=== PATIENT | female | born 1985 | race Caucasian/White ===

== ENCOUNTER 2019-04-25 10:15 | Emergency (ER) | payer OTHER ==
[2019-04-25] MEDS ORDERED: IV NORMAL SALINE 1,000ML 1,000 ML IV SCH (10:32)
--- NOTE | 2019-04-25 10:38 | PHYS DOC ---
Past History Past Medical History: No Pertinent History Past Surgical History: Tonsillectomy Smoking: Non-smoker Alcohol Use: Occasionally Drug Use: None Adult General Chief Complaint Chief Complaint: BACK PAIN OR INJURY HPI HPI Patient is a 34-year-old female presents with right flank pain and fever for the past day or 2. Some nausea, no vomiting. Some lower abdominal pain as well. No vaginal bleeding or discharge. Nothing makes the symptoms worse. She had subjective fever and sweats in bed this morning. Pain and fever are improved with ibuprofen. No sick family members or contacts. No recent travel outside of the [place]. Pain is moderate in intensity. Dull in nature.[] Review of Systems Review of Systems Constitutional: See history of present illness[] Eyes: Denies change in visual acuity, redness, or eye pain [] HENT: Denies nasal congestion or sore throat [] Respiratory: Denies cough or shortness of breath [] Cardiovascular: No chest pain or palpitations[] GI: Denies abdominal pain, nausea, vomiting, bloody stools or diarrhea [] : Some dysuria, no hematuria[] Musculoskeletal: Denies back pain or joint pain [] Integument: Denies rash or skin lesions [] Neurologic: Denies headache, focal weakness or sensory changes [] Endocrine: Denies polyuria or polydipsia [] All other systems were reviewed and found to be within normal limits, except as documented in this note. Allergies Allergies Allergies Coded Allergies Type Severity Reaction Last Updated Verified Sulfa (Sulfonamide Antibiotics) Allergy Unknown 04/25/19 Yes Physical Exam Physical Exam Constitutional: Well developed, well nourished, no acute distress, non-toxic appearance. [] HENT: Normocephalic, atraumatic, bilateral external ears normal, oropharynx moist, no oral exudates, nose normal. [] Eyes: PERRLA, EOMI, conjunctiva normal, no discharge. [] Neck: Normal range of motion, no tenderness, supple, no stridor. [] Cardiovascular:Heart rate regular rhythm, no murmur [] Lungs & Thorax: Bilateral breath sounds clear to auscultation [] Abdomen: Bowel sounds normal, soft, no tenderness, no masses, no pulsatile masses. [] Skin: Warm, dry, no erythema, no rash. [] Back: No tenderness, no CVA tenderness. [] Extremities: No tenderness, no cyanosis, no clubbing, ROM intact, no edema. [] Neurologic: Alert and oriented X 3, normal motor function, normal sensory function, no focal deficits noted. [] Psychologic: Affect normal, judgement normal, mood normal. [] EKG EKG [] Radiology/Procedures Radiology/Procedures PROCEDURE: CT ABDOMEN PELVIS WO CONTRAST CT ABDOMEN PELVIS WO CONTRAST History: Right flank pain. Technique: Noncontrast examination of the abdomen and pelvis. Coronal and sagittal reconstructions were performed. Exposure: One or more of the following individualized dose reduction techniques were utilized for this examination: 1. Automated exposure control 2. Adjustment of the mA and/or kV according to patient size 3. Use of iterative reconstruction technique. Comparison: None Findings: Lower chest: No consolidation or pleural effusion. Abdomen and pelvis: Right perinephric and periureteral fat stranding. Right urothelial thickening. No hydronephrosis. No renal, ureteral or urinary bladder stone. Decompressed urinary bladder. The liver, spleen, adrenal glands, pancreas and gallbladder are unremarkable. No biliary ductal dilatation. Small mildly prominent retroperitoneal lymph nodes largest right para-aortic lymph node measures 1.2 x 0.8 cm. No ascites. Pelvic contents are unremarkable. No evidence of bowel obstruction. Normal appendix. Bones: No pathologic osseous lesions. Impression: 1. Right urothelial thickening with perinephric and periureteral fat stranding, concerning for infection. Alternatively may represent recently passed stone. 2. No evidence of obstructing urolithiasis. 3. Mildly prominent retroperitoneal lymph nodes, likely reactive.[] Course & Med Decision Making Course & Med Decision Making Pertinent Labs and Imaging studies reviewed. (See chart for details) [place]: Patient arrived, was placed in bed, and tolerated exam well. She was transported to and from radiology with any complications. She was given IV fluids and pain medicine. Her heart rate improved from the 1 teens to the 80s after approximately 500 mL of fluid. This was continued as IV antibiotics were started. She had good pain relief with the IV ketorolac. Discussed findings and plan with patient who voiced understanding. All questions were answered. She was discharged in improved condition. Medical decision making: Patient appears to have pyelonephritis. Given that she is afebrile, has good pain management, is receiving first dose of antibiotics in the emergency department via the IV, and is oral intake tolerant, we will attempt outpatient treatment. There is no evidence of a kidney stone or infected stone. No evidence of appendicitis. No evidence of intractable pain.[] Dragon Disclaimer Dragon Disclaimer This electronic medical record was generated, in whole or in part, using a voice recognition dictation system. Departure Departure: Impression: Primary Impression: Pyelonephritis Disposition: HOME, SELF-CARE Condition: IMPROVED Referrals: STANLEY LOGAN PA-C (PCP) Follow-up in 2 days Patient Instructions: Pyelonephritis, Adult Additional Instructions: Drink plenty of fluids. Take the antibiotics as prescribed. Follow-up with your regular doctor in 2 days for a recheck. Return to the ER if worsening pain, fever not controlled with medicine, or any other concerns. Scripts Hydrocodone Bit/Acetaminophen (NORCO 5-325 TABLET) 1 Each Tablet 1 TAB PO Q4-6HRS for severe pain, #20 TAB Prov: JUSTIN MAHER DO 04/25/19 Meloxicam (MELOXICAM) 7.5 Mg Tablet 7.5 MG PO DAILY for PAIN, #20 TAB Prov: JUSTIN MAHER DO 04/25/19 Cephalexin (KEFLEX) 500 Mg Capsule 500 MG PO QID for kidney infection for 10 Days, #40 CAP Prov: JUSTIN MAHER DO 04/25/19 JUSTIN MAHER DO Apr 25, 2019 10:38
[2019-04-25] MEDS ORDERED: KETOROLAC 30 MG/ML VIAL. IV ONE (10:45)
[2019-04-25 10:55] LABS: BASO % 0 % (0-3); EOS % 0 % (0-3); HEMATOCRIT 38.7 % (36.0-47.0); HEMOGLOBIN 13.2 g/dL (12.0-15.5); LYMPH # 1.3 x10^3/uL (1.0-4.8); LYMPH % 8 % (24-48); MEAN CORPUSCULAR HEMOGLOBIN 30 pg (25-35); MEAN CORPUSCULAR HGB CONC 34 g/dL (31-37); MEAN CORPUSCULAR VOLUME 89 fL (79-100); MONO # 1.2 x10^3/uL (0.0-1.1); MONO % 7 % (0-9); NEUT # 14.2 x10^3uL (1.8-7.7); NEUT % 85 % (31-73); PLATELET COUNT 242 x10^3/uL (140-400); RED BLOOD COUNT 4.37 x10^6/uL (3.50-5.40); RED CELL DISTRIBUTION WIDTH 13.4 % (11.5-14.5); WHITE BLOOD COUNT 16.8 x10^3/uL (4.0-11.0)
[2019-04-25 11:06] LABS: ALBUMIN 3.4 g/dL (3.4-5.0); ALBUMIN/GLOBULIN RATIO 0.7 (1.0-1.7); GFR 63.9; POTASSIUM 3.3 mmol/L (3.5-5.1); TOTAL BILIRUBIN 0.9 mg/dL (0.2-1.0); TOTAL PROTEIN 8.3 g/dL (6.4-8.2)
--- NOTE | 2019-04-25 11:07 | RAD ---
CT ABDOMEN PELVIS WO CONTRAST History: Right flank pain. Technique: Noncontrast examination of the abdomen and pelvis. Coronal and sagittal reconstructions were performed. Exposure: One or more of the following individualized dose reduction techniques were utilized for this examination: 1. Automated exposure control 2. Adjustment of the mA and/or kV according to patient size 3. Use of iterative reconstruction technique. Comparison: None Findings: Lower chest: No consolidation or pleural effusion. Abdomen and pelvis: Right perinephric and periureteral fat stranding. Right urothelial thickening. No hydronephrosis. No renal, ureteral or urinary bladder stone. Decompressed urinary bladder. The liver, spleen, adrenal glands, pancreas and gallbladder are unremarkable. No biliary ductal dilatation. Small mildly prominent retroperitoneal lymph nodes largest right para-aortic lymph node measures 1.2 x 0.8 cm. No ascites. Pelvic contents are unremarkable. No evidence of bowel obstruction. Normal appendix. Bones: No pathologic osseous lesions. Impression: 1. Right urothelial thickening with perinephric and periureteral fat stranding, concerning for infection. Alternatively may represent recently passed stone. 2. No evidence of obstructing urolithiasis. 3. Mildly prominent retroperitoneal lymph nodes, likely reactive. Electronically signed by: Rocky Tirado DO (04/25/2019 11:04 AM) [facility]
[2019-04-25 11:09] LABS: BACTERIA,URINE MANY /HPF (0-FEW); BILIRUBIN,URINE MOD (NEG); CLARITY,URINE HAZY; COLOR,URINE AMBER; GLUCOSE,URINE NEG (NEG); NITRITE,URINE POS (NEG); RBC,URINE 20-40 /HPF (0-2); UROBILINOGEN,URINE 4 mg/dL (0.2 mg/dL); WBC,URINE >40 /HPF (0-4)
[2019-04-25 11:10] LABS: GRANULAR CASTS,URINE MOD /HPF; HYALINE CASTS, URINE MOD /HPF; SQUAMOUS EPITHELIAL CELL,UR MOD /LPF
[2019-04-25] MEDS ORDERED: cefTRIAXone SODIUM 1 GM VIAL ONE ×2 (11:24→11:40)
[2019-04-25] MEDS ORDERED: IV NORMAL SALINE 50ML 50 ML ONE ×2 (11:24→11:40)
[2019-04-25] MEDS ORDERED: CEPH-264 PO (11:32)
[2019-04-25] MEDS ORDERED: HYDR-3165 PO (11:32)
[2019-04-25] MEDS ORDERED: MELO7.5T29 PO (11:32)
[2019-04-25 11:49] LABS: % BANDS 3 % (0-9); % LYMPHS 11 % (24-48); % MONOS 5 % (0-10); % SEGS 81 % (35-66); PLT ESTIMATE ADEQUATE (ADEQUATE)
[2019-04-25 11:51] LABS: POLYCHROMASIA SLIGHT; TOXIC GRANULATION PRESENT
[2019-04-25 11:57] VITALS: BP 123/76
== END 2019-04-25 11:59 | disposition home or self-care (01) ==
LOC: ER 10:15
DX: N12 Tubulo-interstitial nephritis, not specified as acute or chronic (principal); Z88.2 Allergy status to sulfonamides
CPT/HCPCS: 36415; 74176; 80053; 81001; 81025; 83690; 85007; 85025; 87086; 96374; 96375; 99285; J0696; J1885; J7030